=== PATIENT | female | born 1985 | race Caucasian/White ===

== ENCOUNTER 2021-08-03 08:18 | Emergency (ER) | payer MEDICAID ==
[~2021-08-03] VITALS: Ht 160 cm; Wt 57.0 kg
[2021-08-03 08:22] VITALS: BP 124/90
[2021-08-03] MEDS ORDERED: ONDANSETRON HCL 4MG/2ML INJ IV STA (08:36)
[2021-08-03] MEDS ORDERED: SODIUM CHLORIDE 0.9% 1,000 ML IV ONE (08:45)
[2021-08-03 09:06] LABS: BASOPHILS % 1.1 % (0.0-2.0); EOSINOPHILS % 0.6 % (0.0-5.0); HEMATOCRIT. 34.6 % (36.0-48.0); HEMOGLOBIN. 11.3 g/dL (12.0-16.0); LYMPHOCYTES % 10.9 % (20.0-50.0); MEAN CORPUSCULAR HEMOGLOBIN 30.1 pg (28.0-32.0); MEAN CORPUSCULAR VOLUME 92.2 fL (81.0-99.0); MEAN PLATELET VOLUME 6.6 fl (7.4-10.4); NEUTROPHILS % 79.4 % (40.0-76.0); PLATELET 196 x1000/uL (130-400); RED BLOOD CELL COUNT 3.75 mill/uL (4.2-5.4); RED CELL DISTRIBUTION WIDTH 17.2 % (11.6-14.6)
[2021-08-03 09:16] LABS: CHLORIDE 113 mEq/L (98-107)
== END 2021-08-03 09:42 | disposition home or self-care (01) ==
LOC: ER 08:18
DX: R42 Dizziness and giddiness (principal); R06.00 Dyspnea, unspecified; F41.9 Anxiety disorder, unspecified; F32.9 Major depressive disorder, single episode, unspecified; F20.9 Schizophrenia, unspecified
CPT/HCPCS: 36415; 80053; 83690; 84484; 85025; 93005; 99284; J7030

== ENCOUNTER 2022-10-02 08:53 | Emergency (ER) | payer MEDICAID, OTHER ==
[~2022-10-02] VITALS: Ht 167.6 cm; Wt 60.0 kg
[2022-10-02 08:59] VITALS: BP 144/82
== END 2022-10-02 09:23 | disposition home or self-care (01) ==
LOC: ER 08:59
DX: Z48.02 Encounter for removal of sutures (principal); F41.9 Anxiety disorder, unspecified; F32.9 Major depressive disorder, single episode, unspecified; F20.9 Schizophrenia, unspecified
CPT/HCPCS: 99281; Z7610

== ENCOUNTER 2022-12-18 20:39 | Emergency (ER) | payer OTHER ==
[~2022-12-18] VITALS: Ht 165.1 cm; Wt 82.0 kg
[2022-12-18 21:49] LABS: BASOPHILS % 1.3 % (0.0-2.0); EOSINOPHILS % 0.2 % (0.0-5.0); HEMATOCRIT. 29.6 % (36.0-48.0); HEMOGLOBIN. 9.4 g/dL (12.0-16.0); LYMPHOCYTES % 35.4 % (20.0-50.0); MEAN CORPUSCULAR HEMOGLOBIN 25.7 pg (28.0-32.0); MEAN CORPUSCULAR VOLUME 80.6 fL (81.0-99.0); MEAN PLATELET VOLUME 6.8 fl (7.4-10.4); MONOCYTES % 6.5 % (2.0-8.0); NEUTROPHILS % 56.6 % (40.0-76.0); PLATELET 226 x1000/uL (130-400); RED BLOOD CELL COUNT 3.67 mill/uL (4.2-5.4); RED CELL DISTRIBUTION WIDTH 18.8 % (11.6-14.6)
[2022-12-18 21:54] LABS: *BARBITURATES SCREEN URINE NEGATIVE (NEGATIVE); *BENZODIAZEPINES SCREEN URINE NEGATIVE (NEGATIVE); *COCAINE SCREEN URINE NEGATIVE (NEGATIVE); CANNABINOID URINE SCREEN NEGATIVE (NEGATIVE); METHADONE URINE SCREEN NEGATIVE (NEGATIVE); OPIATES URINE SCREEN NEGATIVE (NEGATIVE); PHENCYCLIDINE URINE SCREEN NEGATIVE (NEGATIVE)
[2022-12-18 21:55] LABS: CHLORIDE 109 mEq/L (98-107)
[2022-12-18 21:58] LABS: *AMPHETAMINES SCREEN URINE PRESUMTIVE POSITIVE (NEGATIVE)
[2022-12-18 21:59] LABS: HCG SCREEN NEGATIVE
[2022-12-18 22:07] LABS: ETHANOL BLOOD 427 mg/dL
[2022-12-18] MEDS ORDERED: FOLIC ACID 1 MG, THIAMINE HCL 100 MG in DEXTROSE 5% WATER 1,000 ML IV ONE (22:45)
[2022-12-18] MEDS ORDERED: SODIUM CHLORIDE 0.9% 1,000 ML IV SCH (22:45)
[2022-12-18] MEDS ORDERED: MULTIVITAMINS,THER W-MINERALS TABLET PO SCH (23:00)
[2022-12-18 23:10] VITALS: BP 142/98
[2022-12-18] MEDS ORDERED: IBUPROFEN 400MG TABLET PO NR (23:30)
== END 2022-12-19 00:58 | disposition home or self-care (01) ==
LOC: ER 20:39
DX: F10.129 Alcohol abuse with intoxication, unspecified (principal); F17.200 Nicotine dependence, unspecified, uncomplicated; F15.90 Other stimulant use, unspecified, uncomplicated; Z86.59 Personal history of other mental and behavioral disorders; Z13.9 Encounter for screening, unspecified; Y90.8 Blood alcohol level of 240 mg/100 ml or more
CPT/HCPCS: 36415; 71045; 80053; 80305; 80320; 83690; 83880; 84484; 84703; 85025; 93005; 96365; 99285; J3411; J3490; J7070; Z7610; G0480

== ENCOUNTER 2023-01-04 16:11 | Emergency (ER) | payer OTHER ==
[~2023-01-04] VITALS: Ht 152.4 cm; Wt 59.0 kg
[2023-01-04] MEDS ORDERED: SODIUM CHLORIDE 0.9% 1,000 ML IV ONE (17:30)
[2023-01-04 18:44] LABS: HCG SCREEN NEGATIVE
[2023-01-04 20:00] VITALS: BP 105/70
== END 2023-01-04 21:34 | disposition home or self-care (01) ==
LOC: ER 16:11
DX: F10.129 Alcohol abuse with intoxication, unspecified (principal); Y90.0 Blood alcohol level of less than 20 mg/100 ml; F41.9 Anxiety disorder, unspecified; F32.9 Major depressive disorder, single episode, unspecified; F20.9 Schizophrenia, unspecified
CPT/HCPCS: 70450; 84703; 99284; J7030; Z7610

== ENCOUNTER 2023-01-16 13:29 | Emergency (ER) | payer OTHER ==
[2023-01-16 13:42] VITALS: BP 132/70
== END 2023-01-16 13:45 | disposition left against medical advice (07) ==
LOC: ER 13:29
DX: F10.129 Alcohol abuse with intoxication, unspecified (principal); Z00.00 Encounter for general adult medical examination without abnormal findings; Y90.9 Presence of alcohol in blood, level not specified
CPT/HCPCS: 99281

== ENCOUNTER 2023-02-11 12:22 | Emergency (ER) | payer OTHER ==
[~2023-02-11] VITALS: Ht 165.1 cm; Wt 69.0 kg
[2023-02-11 15:27] VITALS: BP 128/62
[2023-02-11 16:47] LABS: HCG SCREEN NEGATIVE
== END 2023-02-11 16:12 | disposition left against medical advice (07) ==
LOC: ER 12:22
DX: F10.129 Alcohol abuse with intoxication, unspecified (principal); R51.9 Headache, unspecified; F41.9 Anxiety disorder, unspecified; F32.A Depression, unspecified; F20.9 Schizophrenia, unspecified; F15.90 Other stimulant use, unspecified, uncomplicated; Y90.8 Blood alcohol level of 240 mg/100 ml or more
CPT/HCPCS: 36415; 70450; 80320; 84703; 99284; Z7610; G0480

== ENCOUNTER 2023-02-14 10:48 | Emergency (ER) | payer OTHER ==
[~2023-02-14] VITALS: Ht 160 cm; Wt 60.0 kg
[2023-02-14 10:52] VITALS: BP 108/74
== END 2023-02-14 11:23 | disposition left against medical advice (07) ==
LOC: ER 10:48
DX: T51.0X1A Toxic effect of ethanol, accidental (unintentional), initial encounter (principal); Z86.59 Personal history of other mental and behavioral disorders; Y92.9 Unspecified place or not applicable; V49.9XXA Car occupant (driver) (passenger) injured in unspecified traffic accident, initial encounter; Y93.89 Activity, other specified; Y92.89 Other specified places as the place of occurrence of the external cause; Y99.8 Other external cause status
CPT/HCPCS: 99283

== ENCOUNTER 2023-02-23 14:54 | Emergency (ER) | payer OTHER ==
[~2023-02-23] VITALS: Ht 157.5 cm; Wt 58.0 kg
[2023-02-23 15:00] VITALS: BP 129/80
== END 2023-02-23 15:20 | disposition left against medical advice (07) ==
LOC: ER 14:54
DX: F10.129 Alcohol abuse with intoxication, unspecified (principal); Z86.59 Personal history of other mental and behavioral disorders; Z53.21 Procedure and treatment not carried out due to patient leaving prior to being seen by health care provider; Y90.9 Presence of alcohol in blood, level not specified
CPT/HCPCS: 99283

== ENCOUNTER 2023-06-15 11:35 | Emergency (ER) | payer OTHER ==
[~2023-06-15 11:35] MED LIST: TOPUD PO
== END 2023-06-15 11:40 | disposition left against medical advice (07) ==
LOC: ER 11:35
DX: F10.129 Alcohol abuse with intoxication, unspecified (principal); Z53.21 Procedure and treatment not carried out due to patient leaving prior to being seen by health care provider; Y90.9 Presence of alcohol in blood, level not specified

== ENCOUNTER 2024-06-03 15:11 | Emergency (ER) | payer OTHER ==
[~2024-06-03] VITALS: Ht 152.4 cm; Wt 57.0 kg
[2024-06-03 15:18] VITALS: BP 127/94; PULSE 110; RESP 16; TEMP 98.2; O2SAT 98
== END 2024-06-03 21:13 | disposition left against medical advice (07) ==
LOC: ER 15:11
DX: R51.9 Headache, unspecified (principal); F41.9 Anxiety disorder, unspecified; F32.A Depression, unspecified; Z53.21 Procedure and treatment not carried out due to patient leaving prior to being seen by health care provider; Z86.59 Personal history of other mental and behavioral disorders

== ENCOUNTER 2024-08-07 13:38 | Emergency (ER) | payer OTHER ==
[~2024-08-07] VITALS: Ht 162.6 cm; Wt 55.0 kg
[2024-08-07 13:39] VITALS: BP 111/83; PULSE 90; RESP 16; TEMP 97.4; O2SAT 97
== END 2024-08-07 17:38 | disposition left against medical advice (07) ==
LOC: ER 13:38
DX: F10.129 Alcohol abuse with intoxication, unspecified (principal); Z53.21 Procedure and treatment not carried out due to patient leaving prior to being seen by health care provider; Y90.9 Presence of alcohol in blood, level not specified
CPT/HCPCS: 99283

== ENCOUNTER 2024-08-10 14:50 | Emergency (ER) | payer OTHER ==
[~2024-08-10] VITALS: Ht 157.5 cm; Wt 66.0 kg
[2024-08-10 14:53] VITALS: O2SAT 97
[2024-08-10] MEDS ORDERED: TETANUS, DIPHTHERIA, PERTUSSIS VAC/PF 0.5ML (>10YR OLD) IM ONE (15:15)
[2024-08-10] MEDS ORDERED: LORAZEPAM 1MG TABLET PO ONE (15:30)
[2024-08-10 16:11] LABS: EOSINOPHILS % 0.9 % (0.0-5.0); HEMATOCRIT. 35.5 % (36.0-48.0); HEMOGLOBIN. 11.6 g/dL (12.0-16.0); MEAN CORPUSCULAR HEMOGLOBIN 28.7 pg (28.0-32.0); MEAN CORPUSCULAR HGB CONC 32.8 g/dL (31.0-37.0); MEAN CORPUSCULAR VOLUME 87.5 fL (81.0-99.0); MEAN PLATELET VOLUME 7.2 fl (7.4-10.4); MONOCYTES % 6.1 % (2.0-8.0); PLATELET 279 x1000/uL (130-400); RED BLOOD CELL COUNT 4.05 mill/uL (4.2-5.4); RED CELL DISTRIBUTION WIDTH 20.5 % (11.6-14.6); WHITE BLOOD COUNT 6.7 x1000/uL (4.5-11.0)
[2024-08-10 16:19] LABS: CHLORIDE 110 mEq/L (98-107); POTASSIUM 4.1 mEq/L (3.5-5.1); SODIUM 143 mEq/L (136-145)
[2024-08-10 16:20] LABS: CALCIUM 9.8 mg/dL (8.7-10.4); CARBON DIOXIDE 24 mEq/L (21-32)
[2024-08-10 16:22] LABS: HCG SCREEN NEGATIVE
[2024-08-10 16:25] LABS: CREATININE 1.1 mg/dL (0.6-1.0); GLUCOSE 92 mg/dL (70-105); UREA NITROGEN BLOOD 14 mg/dL (9-23)
[2024-08-10 16:27] LABS: ALANINE AMINOTRANSFERASE 12 IU/L (10-49); ALBUMIN 4.6 g/dL (3.2-4.8); ASPARTATE AMINOTRANSFERASE 31 IU/L (<34); BILIRUBIN TOTAL 0.2 mg/dL (0.1-1.0); PROTEIN TOTAL 8.5 g/dL (6.0-8.3)
[2024-08-10] MEDS: LIDOCAINE HCL/EPINEPHRINE 1%-EPI 1:100,000 10ML VIAL INFIL ONE (16:39)
[2024-08-10] MEDS ORDERED: TOPUD PO (18:01)
[2024-08-10] MEDS ORDERED: BACI3.5O19 EACHEYE (18:03)
[2024-08-10] MEDS: TETANUS, DIPHTHERIA, PERTUSSIS VAC/PF 0.5ML (>10YR OLD) IM ONE (18:16)
[2024-08-10] MEDS: LORAZEPAM 1MG TABLET PO NR (18:19)
[2024-08-10 18:23] VITALS: BP 148/64; PULSE 90; RESP 16; TEMP 36.55848; O2SAT 99
== END 2024-08-10 18:24 | disposition home or self-care (01) ==
LOC: ER 14:50
DX: S02.40DA Maxillary fracture, left side, initial encounter for closed fracture (principal); S01.412A Laceration without foreign body of left cheek and temporomandibular area, initial encounter; F10.129 Alcohol abuse with intoxication, unspecified; F20.9 Schizophrenia, unspecified; F41.9 Anxiety disorder, unspecified; X58.XXXA Exposure to other specified factors, initial encounter; Y93.89 Activity, other specified; Y92.89 Other specified places as the place of occurrence of the external cause; Y99.8 Other external cause status
CPT/HCPCS: 80053; 84703; 85025; 36415; 70450; 70486; 90715; 10060; 12011; 90471; 99285; Z7610; C1893

== ENCOUNTER 2024-08-17 08:18 | Emergency (ER) | payer OTHER ==
[~2024-08-17] VITALS: Ht 154.9 cm; Wt 54.0 kg
[~2024-08-17 08:18] MED LIST changes: +BACI3.5O19 EACHEYE
[2024-08-17 08:23] VITALS: O2SAT 99
[2024-08-17 09:13] VITALS: BP 146/101; PULSE 105; RESP 15; TEMP 36.66960; O2SAT 99
== END 2024-08-17 09:17 | disposition home or self-care (01) ==
LOC: ER 08:31
DX: T14.8XXD Other injury of unspecified body region, subsequent encounter (principal); F20.9 Schizophrenia, unspecified; F10.20 Alcohol dependence, uncomplicated; F41.9 Anxiety disorder, unspecified; F32.A Depression, unspecified; X58.XXXD Exposure to other specified factors, subsequent encounter; Y90.9 Presence of alcohol in blood, level not specified
CPT/HCPCS: 99281; Z7610 ×2

== ENCOUNTER 2024-09-16 18:01 | Emergency (ER) | payer OTHER ==
[~2024-09-16] VITALS: Ht 160 cm; Wt 63.0 kg
[2024-09-16 18:02] VITALS: BP 152/89; PULSE 90; RESP 16; TEMP 98.4; O2SAT 100
== END 2024-09-16 19:51 | disposition left against medical advice (07) ==
LOC: ER 18:01
DX: F10.129 Alcohol abuse with intoxication, unspecified (principal); Z59.00 Homelessness unspecified; F20.9 Schizophrenia, unspecified; Z87.891 Personal history of nicotine dependence; Y90.9 Presence of alcohol in blood, level not specified
CPT/HCPCS: 99283

== ENCOUNTER 2024-09-22 17:18 | Emergency (ER) | payer OTHER ==
[~2024-09-22] VITALS: Ht 165.1 cm; Wt 73.0 kg
[2024-09-22 17:19] VITALS: TEMP 98.4; O2SAT 97
[2024-09-22 22:59] VITALS: BP 120/52; PULSE 71; RESP 15; O2SAT 96
== END 2024-09-22 20:27 | disposition home or self-care (01) ==
LOC: ER 17:18
DX: G92.9 Unspecified toxic encephalopathy (principal); F10.129 Alcohol abuse with intoxication, unspecified; F20.9 Schizophrenia, unspecified; F32.A Depression, unspecified; F41.9 Anxiety disorder, unspecified; Y90.9 Presence of alcohol in blood, level not specified
CPT/HCPCS: 99283

== ENCOUNTER 2024-12-24 10:14 | Emergency (ER) | payer OTHER ==
[~2024-12-24] VITALS: Ht 160 cm; Wt 52.0 kg
[2024-12-24 10:21] VITALS: O2SAT 97
[2024-12-24 10:30] VITALS: BP 119/71; PULSE 87; RESP 18; TEMP 36.4; O2SAT 97
[2024-12-24 10:50] LABS: HEMOGLOBIN. 10.5 g/dL (12.0-16.0); MEAN PLATELET VOLUME 7.1 fl (7.4-10.4); WHITE BLOOD COUNT 5.3 x1000/uL (4.5-11.0)
[2024-12-24 10:57] LABS: CARBON DIOXIDE 23 mEq/L (21-32); CHLORIDE 113 mEq/L (98-107); POTASSIUM 4.2 mEq/L (3.5-5.1); SODIUM 145 mEq/L (136-145)
[2024-12-24 10:58] LABS: CALCIUM 8.5 mg/dL (8.7-10.4)
[2024-12-24 11:03] LABS: EOSINOPHILS % 1.3 % (0.0-5.0); GLUCOSE 96 mg/dL (70-105); HEMATOCRIT. 33.1 % (36.0-48.0); LYMPHOCYTES % 37.6 % (20.0-50.0); MEAN CORPUSCULAR HEMOGLOBIN 28.4 pg (28.0-32.0); MEAN CORPUSCULAR HGB CONC 31.7 g/dL (31.0-37.0); MEAN CORPUSCULAR VOLUME 89.7 fL (81.0-99.0); MONOCYTES % 8.3 % (2.0-8.0); NEUTROPHILS % 50.8 % (40.0-76.0); PLATELET 310 x1000/uL (130-400); RED BLOOD CELL COUNT 3.69 mill/uL (4.2-5.4); RED CELL DISTRIBUTION WIDTH 19.5 % (11.6-14.6); UREA NITROGEN BLOOD 12 mg/dL (9-23)
[2024-12-24 11:07] LABS: DIFFERENTIAL COMMENT 1
[2024-12-24 11:27] LABS: ETHANOL BLOOD 438 mg/dL (<10)
== END 2024-12-24 13:55 | disposition left against medical advice (07) ==
LOC: ER 10:14 → CANBEDREQ 13:48 → ER 13:55
DX: F10.129 Alcohol abuse with intoxication, unspecified (principal); F41.9 Anxiety disorder, unspecified; F32.A Depression, unspecified; Z86.59 Personal history of other mental and behavioral disorders; Y90.8 Blood alcohol level of 240 mg/100 ml or more
CPT/HCPCS: 80048; 80320; 85025; 36415; 71045; 99284; Z7610 ×3; A6449; A4606; G0480